=== PATIENT | female | born 1985 | race Two or more races ===

== ENCOUNTER 2022-12-29 13:52 | Emergency (ER) | payer OTHER ==
[2022-12-29] MEDS ORDERED: Lidocaine 1% 5 ML VIAL INJECT STA (15:27)
== END 2022-12-29 18:45 | disposition home or self-care (01) ==
LOC: MW.ED 13:52
DX: S68.011A Complete traumatic metacarpophalangeal amputation of right thumb, initial encounter (principal); S61.101A Unspecified open wound of right thumb with damage to nail, initial encounter; W27.4XXA Contact with kitchen utensil, initial encounter; Y92.89 Other specified places as the place of occurrence of the external cause; Y99.0 Civilian activity done for income or pay
CPT/HCPCS: 73140-26-F5; 73140-F5; 99283; J3490

== ENCOUNTER 2024-02-10 11:37 | Emergency (ER) | payer SELFPAY ==
[2024-02-10] MEDS: Alum Hydrox/Mag Hydrox/Simeth 15 ML, Lidocaine 2% 5 ML PO ONE (12:55)
== END 2024-02-10 13:04 | disposition home or self-care (01) ==
LOC: MW.ED 11:37
DX: R12 Heartburn (principal); Z79.899 Other long term (current) drug therapy; Z75.8 Other problems related to medical facilities and other health care
CPT/HCPCS: 99283; A9270

== ENCOUNTER 2024-03-27 01:19 | Emergency (ER) | payer SELFPAY ==
[2024-03-27] MEDS: Ketorolac 30 MG/ML SDV IM ONE (02:46)
== END 2024-03-27 03:01 | disposition home or self-care (01) ==
LOC: MW.ED 01:19
DX: T81.31XA Disruption of external operation (surgical) wound, not elsewhere classified, initial encounter (principal)
CPT/HCPCS: 99283